=== PATIENT | female | born 1950 | race Caucasian/White ===

== ENCOUNTER 2022-04-29 06:00 | Inpatient (IN) | payer OTHER ==
[2022-04-26 16:49] VITALS: BMI 39.4
[2022-04-29] MEDS ORDERED: VANCOMYCIN 1,000 MG VIAL (RESTRICTED TO ID ONLY) ONE (07:14)
[2022-04-29] MEDS ORDERED: BUPIVACAINE LIPOSOME/PF (EXPAREL) 266 MG/20 ML VIAL ONE (07:40)
[2022-04-29] MEDS ORDERED: MIDAZOLAM HCL 2 MG/2 ML SINGLE DOSE VIAL ONE ×3 (07:40→09:52)
[2022-04-29] MEDS ORDERED: FENTANYL CITRATE/PF 50 MCG/ML VIAL ONE (07:40)
[2022-04-29] MEDS ORDERED: BUPIVACAINE HCL/PF 0.5% (5 MG/ML) 30 ML VIAL IJ ONE (07:41)
[2022-04-29] MEDS ORDERED: SUCCINYLCHOLINE CHLORIDE 200 MG/10 ML SYRINGE ONE (07:47)
[2022-04-29] MEDS ORDERED: BUPIVACAINE HCL/PF 0.5% (5MG/ML) 10 ML VIAL ONE (08:05)
[2022-04-29] MEDS ORDERED: PROPOFOL 20 ML ONE ×3 (08:37→10:17)
[2022-04-29] MEDS ORDERED: ONDANSETRON 4 MG/2 ML VIAL ONE (08:49)
[2022-04-29] MEDS ORDERED: DEXAMETHASONE SOD PHOSPHATE 4 MG/1 ML VIAL ONE (08:49)
[2022-04-29] MEDS ORDERED: KETOROLAC TROMETHAMINE 60 MG/2 ML VIAL ONE (09:28)
[2022-04-29] MEDS ORDERED: BUPIVACAINE HCL/PF 2.5 MG/ML - 30 ML VIAL IJ ONE (09:28)
[2022-04-29] MEDS ORDERED: MAG HYDROX/AL HYDROX/SIMETH 30 ML UNIT-DOSE CUP PO PRN (11:13)
[2022-04-29] MEDS ORDERED: ONDANSETRON 4 MG/2 ML VIAL IVPUSH PRN ×2 (11:13→12:12)
[2022-04-29] MEDS ORDERED: LACTATED RINGERS SOLUTION 1,000 ML IV SCH ×2 (11:15→12:15)
[2022-04-29] MEDS ORDERED: oxyCODONE HCL 5 MG TABLET PO PRN ×3 (12:12)
[2022-04-29] MEDS: ACETAMINOPHEN 500 MG TABLET (FP) PO SCH ×2 (12:30→17:34)
[2022-04-29] MEDS ORDERED: DEXTROSE 5%-WATER 100 ML IVPB ONE ×2 (15:52→23:33)
[2022-04-29] MEDS ORDERED: CEFAZOLIN SODIUM 2 GM VIAL ONE ×2 (15:52→23:33)
[2022-04-29] MEDS: CEFAZOLIN SODIUM 2 GM in DEXTROSE 5%-WATER 100 ML IVPB SCH ×2 (16:14→23:38)
[2022-04-29] MEDS: oxyCODONE HCL 5 MG TABLET PO PRN ×2 (17:34→21:34)
[2022-04-29] MEDS: GABAPENTIN 300 MG CAPSULE PO SCH (21:34)
[2022-04-29] MEDS: SENNOSIDES/DOCUSATE COMBO (SENNA PLUS) TABLET (UD) PO SCH (21:34)
[2022-04-30] MEDS: oxyCODONE HCL 5 MG TABLET PO PRN ×3 (01:58→14:40)
[2022-04-30] MEDS: ACETAMINOPHEN 500 MG TABLET (FP) PO SCH ×3 (01:59→14:41)
[2022-04-30 08:27] LABS: HEMATOCRIT 35.2 % (32.4-45.2); HEMOGLOBIN 12.1 G/dL (10.7-15.3); MCH 30.8 pg (25.7-33.7); MCHC 34.2 g/dl (32.0-36.0); MEAN CELL VOLUME 89.9 fl (80-96); MEAN PLT VOLUME 8.9 fl (7.5-11.1); PLATELET COUNT 221.4 10^3/uL (134-434); RBC 3.91 10^6/uL (3.60-5.2); RDW 14.4 % (11.6-15.6); WHITE BLOOD COUNT 10.9 10^3/uL (4.0-10.8)
[2022-04-30 08:47] LABS: CALCIUM 9.4 mg/dl (8.5-10); CREATININE 1.1 mg/dl (0.55-1.3)
[2022-04-30] MEDS ORDERED: DEXTROSE 5%-WATER 100 ML IVPB ONE (09:23)
[2022-04-30] MEDS ORDERED: CEFAZOLIN SODIUM 2 GM VIAL ONE (09:23)
[2022-04-30] MEDS: SENNOSIDES/DOCUSATE COMBO (SENNA PLUS) TABLET (UD) PO SCH (09:27)
[2022-04-30] MEDS: GABAPENTIN 300 MG CAPSULE PO SCH (09:28)
[2022-04-30] MEDS: CEFAZOLIN SODIUM 2 GM in DEXTROSE 5%-WATER 100 ML IVPB SCH (09:29)
[2022-04-30 09:41] LABS: CALCIUM 9.2 mg/dl (8.5-10); CREATININE 1.2 mg/dl (0.55-1.3)
[2022-04-30] MEDS ORDERED: PANTOPRAZOLE 40 MG TABLET PO SCH (10:00)
[2022-04-30] MEDS ORDERED: MULTIVITAMINS (DAILY MVI) TABLET (FP) PO SCH (10:00)
[2022-04-30] MEDS ORDERED: ASPIRIN 325 MG TABLET PO SCH (10:00)
[2022-04-30] MEDS ORDERED: SODIUM CHLORIDE 500 ML IV STA (10:54)
[2022-04-30 13:58] VITALS: BP 127/58; PULSE 69; TEMP 97.7
[2022-04-30] MEDS ORDERED: SODIUM CHLORIDE 0.9% 500 ML INFUS.BAG IV ONE (14:00)
[2022-04-30 14:35] LABS: CALCIUM 9.5 mg/dl (8.5-10); CREATININE 1.4 mg/dl (0.55-1.3)
== END 2022-04-30 15:13 | disposition home or self-care (01) | DRG 470 ==
LOC: UNDOADMIN 06:00 → FM/S 06:00
PROVIDERS: ADMIT Orthopaedic Surgery Sports Medicine; ATTEND Orthopaedic Surgery Sports Medicine
PROC: 8E0Y0CZ Robotic Assisted Procedure of Lower Extremity, Open Approach (ICD-10-PCS; 2022-04-29)
PROC: 0SRC0J9 Replacement of Right Knee Joint with Synthetic Substitute, Cemented, Open Approach (ICD-10-PCS; principal; 2022-04-29 08:56)
DX: M17.11 Unilateral primary osteoarthritis, right knee (principal); I10 Essential (primary) hypertension; E78.5 Hyperlipidemia, unspecified; G62.9 Polyneuropathy, unspecified
CPT/HCPCS: 36415; 73560-TC-RT-FY; 80048; 85027; 88305-TC; 88311-TC; 94760; 97010-GP; 97116-GP; 97161-GP; C9803-CS; U0003; U0005